=== PATIENT | female | born 2005 | race Caucasian/White ===

== ENCOUNTER 2024-03-15 06:13 | Day surgery (SDC) | payer BC, SELFPAY ==
[2024-03-15] VITALS (9 sets, daily range): BP systolic 118–134; BP diastolic 68–81; BMI 21.6
[2024-03-15 13:52] LABS: HCG, Serum Qualitative Screen Negative
[2024-03-15] MEDS: DILAUDID 0.25 MG IV ×2 (16:18→16:29)
== END 2024-03-15 17:50 | disposition home or self-care (01) ==
LOC: SDS 06:13
PROVIDERS: Anesthesiology; ATTENDING PHYSICIAN Otolaryngology Facial Plastic Surgery; FAMILY PHYSICIAN Family Medicine
DX: J35.01 Chronic tonsillitis (principal); J34.2 Deviated nasal septum; J34.89 Other specified disorders of nose and nasal sinuses
CPT/HCPCS: 30520; 42826; 88300; 88304; 84703

== ENCOUNTER → 2025-01-01 11:06 | Outpatient (REF) | payer OTHER, SELFPAY ==
[2025-01-02 18:34] LABS: Hepatitis B Surface Antibody Negative
[2025-01-03 13:20] LABS: Quantiferon Mitogen minus NIL 9.98 IU/mL; Quantiferon NIL 0.02 IU/mL; Quantiferon Plus TB2 minus NIL 0.02 IU/mL (<=0.34); Quantiferon TB Gold Plus Negative (Negative)
== END ==
LOC: OHS 11:06
PROVIDERS: ATTENDING PHYSICIAN Nurse Practitioner Family
DX: Z23 Encounter for immunization (principal)
CPT/HCPCS: 36415; 86480; 86706

== ENCOUNTER → 2025-03-07 12:44 | Outpatient (REF) | payer OTHER, SELFPAY | LOC: OHS 12:44 | PROVIDERS: ATTENDING PHYSICIAN Nurse Practitioner Family | DX: Z23 Encounter for immunization (principal) | CPT/HCPCS: 36415; 86706 ==